=== PATIENT | male | born 1995 ===

== ENCOUNTER 2017-11-13 11:42 | Emergency (ER) | payer OTHER ==
--- NOTE | 2017-11-13 14:24 | RAD ---
HISTORY: fell 6 feet down to pavement with ulnar pain COMPARISONS: None VIEWS: 3, Frontal, lateral, and oblique views of the right wrist FINDINGS: BONE DENSITY: Normal. BONES: There is no displaced fracture. JOINTS: There is no arthropathy. ALIGNMENT: There is no dislocation. SOFT TISSUES: Unremarkable. OTHER FINDINGS: None. IMPRESSION: NO ACUTE OSSEOUS INJURY. IF SYMPTOMS PERSIST, RECOMMEND REPEAT IMAGING.
--- NOTE | 2017-11-13 15:42 | UC ---
Upper Extremity HPI - HPI Summary HPI Summary: patient states he fell over a porch 6 feet onto the cement sidewalk with outstretched right hand and bruised his face. Has pain on right wrist this morning, around 4/10 mainly when he is moving it. No baseline pain. Denies PMH, denies medications. Denies head trauma/LOC - History of Current Complaint Chief Complaint: UCUpperExtremity Stated Complaint: WRIST INJURY AND CUT ON CHIN Time Seen by Provider: 11/13/17 13:25 Hx Obtained From: Patient Onset/Duration: Sudden Onset, Lasting Hours Severity Currently: Moderate Pain Intensity: 4 Pain Scale Used: 0-10 Numeric Character: Dull Aggravating Factor(s): Movement, Lifting, Flexion, Extension Alleviating Factor(s): OTC Meds Associated Signs And Symptoms: Positive: Negative - Risk Factors Non-Orthopedic Risk Factor: Negative DVT Risk Factors: Negative Septic Arthritis Risk Factor: Negative - Allergies/Home Medications Allergies/Adverse Reactions: Allergies Allergy/AdvReac Type Severity Reaction Status Date / Time No Known Allergies Allergy Verified 11/13/17 12:43 Home Medications: Home Medications NK [No Home Medications Reported] 11/13/17 [History Confirmed 11/13/17] PMH/Surg Hx/FS Hx/Imm Hx Previously Healthy: Yes - Surgical History Surgical History: None - Family History Known Family History: Positive: None - Social History Alcohol Use: None Substance Use Type: None Smoking Status (MU): Never Smoked Tobacco - Immunization History Most Recent Tetanus Shot: 11/10/17 Review of Systems Constitutional: Negative Skin: Negative Eyes: Negative ENT: Negative Respiratory: Negative Cardiovascular: Negative Gastrointestinal: Negative Musculoskeletal: Arthralgia, Myalgia All Other Systems Reviewed And Are Negative: Yes Physical Exam Triage Information Reviewed: Yes Appearance: Well-Appearing, No Pain Distress, Well-Nourished Vital Signs: Initial Vital Signs Temp 98.5 F 11/13/17 12:39 Pulse 65 11/13/17 12:39 Resp 12 11/13/17 12:39 BP 138/78 11/13/17 12:39 Pulse Ox 100 11/13/17 12:39 Vital Signs Reviewed: Yes Eyes: Positive: Conjunctiva Clear ENT: Positive: Hearing grossly normal, Pharynx normal Neck exam: Normal Neck: Positive: Supple, Nontender Respiratory: Positive: Chest non-tender, Lungs clear Cardiovascular: Positive: Pulses Normal, Brisk Capillary Refill Abdomen Description: Positive: Nontender Musculoskeletal: Positive: Strength Intact, ROM Intact, No Edema, Other: - right wrist: no deformity, radial and ulnar pulses present, capillary refill brisk, ROM limited by pain Skin Exam: Other - abrassions on midline nose, philtrum, mento labial sulcus and chin without active bleeding and discharge, covered with bacitracin Upper Extremity Course/Dx - Course Course Of Treatment: continue wound care on face for abrassions. Xray of right wrist was negative for fracture or dislocation. Wrist splint provided and continue ROM exercises, f/u PCP - Differential Dx/Diagnosis Provider Diagnoses: wrist sprain. Facial abrassions Discharge - Sign-Out/Discharge Documenting (check all that apply): Patient Departure - Discharge Plan Condition: Good Disposition: HOME Patient Education Materials: Wrist Sprain (ED), Ibuprofen (By mouth), Abrasion (ED) Referrals: No Primary Care Phys,NOPCP [Primary Care Provider] - [facility] [[facility]] Additional Instructions: use splint at night and as support , remove on and off during the day and do range of motion. Cover abrassions with bacitracin ointment, keep clean and dry - Billing Disposition and Condition Condition: GOOD Disposition: Home
== END 2017-11-13 15:08 | disposition home or self-care (01) ==
LOC: UCEAST 11:42
DX: S00.81XA Abrasion of other part of head, initial encounter (principal); S63.501A Unspecified sprain of right wrist, initial encounter; W17.89XA Other fall from one level to another, initial encounter; Y93.9 Activity, unspecified; Y92.008 Other place in unspecified non-institutional (private) residence as the place of occurrence of the external cause
CPT/HCPCS: 99203; G0463